=== PATIENT | male | born 1980 | race Caucasian/White ===

== ENCOUNTER → 2017-01-01 | Outpatient (CLI) | payer BC ==
--- NOTE | 2017-01-01 18:56 | Diagnostic Imaging Report ---
Right breast ultrasound. INDICATION: Right breast lump. TECHNIQUE: All four quadrants and the retroareolar region were examined on this study. FINDINGS: Unremarkable breast parenchyma seen with no focal lesion. IMPRESSION: Negative study. Clinical follow-up of the palpable area is recommended. If it persists or worsens, then mammography evaluation is recommended. ACR BI-RADS Category 1: Negative. Dictated by: Dictated on workstation # [id number]
== END ==
LOC: RAD 13:43
PROVIDERS: ATTEND Family Medicine
DX: N63 Unspecified lump in breast (principal)
CPT/HCPCS: 76641